=== PATIENT | male | born 1945 | race Caucasian/White ===

== ENCOUNTER 2016-06-03 13:44 | Inpatient (IN) | payer MEDICARE ==
[2016-06-03] MEDS ORDERED: SODIUM CHLORIDE 0.9% 10 ML FLUSH FLUSH PRN (14:31)
[2016-06-03 14:54] LABS: AUTOMATED BASOPHIL 0.4 % (0-2); AUTOMATED LYMPH 25.1 % (17-44); AUTOMATED MONOCYTE 10.2 % (3-10); AUTOMATED NEUTROPHIL 63.3 % (45-76); MPV 7.5 fL (7.4-10.4)
--- NOTE | 2016-06-03 14:58 | DIRPT ---
CLINICAL DATA: Chest pain EXAM: PORTABLE CHEST 1 VIEW COMPARISON: 06/12/2010 FINDINGS: The heart size and mediastinal contours are within normal limits. Both lungs are clear. The visualized skeletal structures are unremarkable. IMPRESSION: No active disease. Electronically Signed By: Giles Thompson M.D. On: 06/03/2016 14:55
[2016-06-03 15:00] LABS: BLOOD UREA NITROGEN 18 MG/DL (9-20); CALCIUM 10.3 MG/DL (8.4-10.2); CALCULATED OSMOLALITY 271 MOs/Kg (270-290); CHLORIDE 99 mEq/L (98-107); GLUCOSE 98 MG/DL (70-99); SODIUM LEVEL 140 mEq/L (137-146); TOTAL PROTEIN 7.8 G/DL (6.3-8.2)
--- NOTE | 2016-06-03 15:06 | EDPRACDOC ---
- General Information Information Source: Patient, Family - History of Present Illness Onset: this am 0500 Exact Onset of Symptoms: Unknown HPI: PT PRESENTS TODAY WITH WHO STATES THAT PT HAS BEEN CONFUSED AT HOME. STATES THAT SHE HEARD PT FALL LAST NIGHT AND THIS MORNING PT WAS WALKING AROUND THE HOUSE "URINATING ON EVERYTHING". PT THEN DEMANDED PANTS AND THREATENED HIS . PT HAS NO CURRENT COMPLAINTS. 3 DAYS AGO HAD LEFT LATERAL NECK PAIN, BUT NONE TODAY. PT DENIES DIZZINESS, FINNEY, CP, SHOB, ABD PAIN, N/V/D. NO APPARENT DISTRESS. PT PLEASANT AT THIS TIME. Symptoms began: At Night Duration: Since Onset Symptoms Currently: Reports: Still Present Altered Quality: Reports: Change in Behavior, Confusion Altered Severity: Reports: Moderate Recent Symptoms of: Reports: None Relevant History: Reports: CVA <Janice Bowers - Last Filed: 06/03/16 17:25> <Helena Chow - Last Filed: 06/03/16 18:11> - General Information Chief Complaint: Altered Mental Status Stated Complaint: INCREASING CONFUSION. HX TIAS Time Seen by Provider: 06/03/16 14:17 Home Medications: Home Medications CYANOCOBALAMIN (Vitamin B-12) [Vitamin B-12 (cyanocobalamin)] 1,000 mcg IM .MONTHLY 09/25/13 Omeprazole 20 mg PO DAILY 09/25/13 Escitalopram Oxalate [Lexapro] 20 mg PO DAILY 09/26/13 Pravastatin [Pravachol] 20 mg PO DAILY 09/26/13 Tizanidine HCl [Zanaflex] 4 mg PO .Q8-12H PRN 06/03/16 Allergies/Adverse Reactions: Allergies Allergy/AdvReac Type Severity Reaction Status Date / Time No Known Allergies Allergy Verified 06/03/16 14:58 ED Past Medical History - History Reviewed Yes Nurses notes reviewed and agree except as marked - Patient Medical History Neurological History: Reports: Cerebrovascular Accident (TIA) Cardiac History: Reports: Hypercholesterolemia Psychological History: Reports: Depression Systemic History: Reports: Cancer (stomach) - Family Medical History Reports: Cancer (FATHER), Cardiac Disorders (FATHER) - Social Medical History Smoking Status: Former smoker <Janice Bowers - Last Filed: 06/03/16 17:25> EDM Review of Systems - Review of Systems ROS Negative Except as Marked: Yes All systems reviewed and were negative except as marked Constitutional: No Symptoms Reported Respiratory: No Symptoms Reported Cardiovascular: No Symptoms Reported Gastrointestinal: No Symptoms Reported Neurological: Memory Changes, Changes in Orientation Musculoskeletal: No Symptoms Reported Integumentary: No Symptoms Reported <Janice Bowers - Last Filed: 06/03/16 17:25> - Physical Exam Constitutional: Alert (Awake), No apparent distress Oriented to: Time, Person, Place Last recorded Vital Signs: Last Vital Signs Temp 97.6 F 06/03/16 13:58 Pulse 60 06/03/16 14:10 Resp 16 06/03/16 14:10 BP 155/71 06/03/16 14:10 Pulse Ox 95 06/03/16 14:10 Oxygen Pulse Oxygen Saturation 95 O2 Device Room Air Oxygen Flow Rate Fraction of Inspired Oxygen ( FIO2) - HEENT Head: Normal Eye Exam: Normal (PERRL; EOMI; RED REFLEX NOTED; RIGHT EYE IS PROSTHETIC) Oropharynx: Normal Tympanic Membrane: Normal ENT EAC: Normal Nose: No Symptoms Reported Neck: Normal, Denies Pain, Midline - Respiratory/Cardiovascular Respiratory: Normal - CTA Cardiovascular: Normal - GI Palpation: Normal Tenderness: Non tender - Musculoskeletal Back: Normal Extremities: Normal - Integumentary Skin: Normal Lymphatics: Normal - Neurologic Cerebellar: Normal Mood Description: Normal Thought: Coherent Perception: Normal <Janice Bowers - Last Filed: 06/03/16 17:25> - Physical Exam Last recorded Vital Signs: Last Vital Signs Temp 97.6 F 06/03/16 13:58 Pulse 66 06/03/16 17:19 Resp 20 06/03/16 17:19 BP 175/79 06/03/16 17:19 Pulse Ox 96 06/03/16 17:19 Oxygen Pulse Oxygen Saturation 96 O2 Device Room Air Oxygen Flow Rate Fraction of Inspired Oxygen ( FIO2) <Helena Chow - Last Filed: 06/03/16 18:11> - Results 06/03/16 14:25 06/03/16 14:25 WBC 6.3 xk/uL (3.8-10.8) 06/03/16 14:25 RBC 3.73 xM/uL (4.70-6.10) L 06/03/16 14:25 Hgb 13.2 g/dL (14.0-18.0) L 06/03/16 14:25 Hct 38.9 % (42-52) L 06/03/16 14:25 MCV 104 fL (80-94) H 06/03/16 14:25 MCH 35.4 pg (27-32) H 06/03/16 14:25 MCHC 33.9 g/dl (33-36) 06/03/16 14:25 RDW 14.4 % (11.5-14.5) 06/03/16 14:25 Plt Count 169 xk/uL (130-400) 06/03/16 14:25 MPV 7.5 fL (7.4-10.4) 06/03/16 14:25 Neut % (Auto) 63.3 % (45-76) 06/03/16 14:25 Lymph % (Auto) 25.1 % (17-44) 06/03/16 14:25 [place] % (Auto) 10.2 % (3-10) H 06/03/16 14:25 Eos % (Auto) 1.0 % (0-5) 06/03/16 14:25 Baso % (Auto) 0.4 % (0-2) 06/03/16 14:25 Absolute Neuts (auto) 3.97 xk/uL (1.7-8.2) 06/03/16 14:25 Absolute Lymphs (auto) 1.58 xk/uL (0.65-4.75) 06/03/16 14:25 Lab Results 06/03/16 14:25 WBC 6.3 RBC 3.73 L Hgb 13.2 L Hct 38.9 L MCV 104 H MCH 35.4 H MCHC 33.9 RDW 14.4 Plt Count 169 MPV 7.5 Neut % (Auto) 63.3 Lymph % (Auto) 25.1 [place] % (Auto) 10.2 H Eos % (Auto) 1.0 Baso % (Auto) 0.4 Absolute Neuts (auto) 3.97 Absolute Lymphs (auto) 1.58 - EKG EKG #1 EKG Time: 14:38 -: Yes EKG interpreted by me Rate: bpm: 62 [place]: Normal Rhythm: NSR Block: None Hypertrophy: None ST: Normal <Janice Bowers - Last Filed: 06/03/16 17:25> - Results 06/03/16 14:25 06/03/16 14:25 WBC 6.3 xk/uL (3.8-10.8) 06/03/16 14:25 RBC 3.73 xM/uL (4.70-6.10) L 06/03/16 14:25 Hgb 13.2 g/dL (14.0-18.0) L 06/03/16 14:25 Hct 38.9 % (42-52) L 06/03/16 14:25 MCV 104 fL (80-94) H 06/03/16 14:25 MCH 35.4 pg (27-32) H 06/03/16 14:25 MCHC 33.9 g/dl (33-36) 06/03/16 14:25 RDW 14.4 % (11.5-14.5) 06/03/16 14:25 Plt Count 169 xk/uL (130-400) 06/03/16 14:25 MPV 7.5 fL (7.4-10.4) 06/03/16 14:25 Neut % (Auto) 63.3 % (45-76) 06/03/16 14:25 Lymph % (Auto) 25.1 % (17-44) 06/03/16 14:25 [place] % (Auto) 10.2 % (3-10) H 06/03/16 14:25 Eos % (Auto) 1.0 % (0-5) 06/03/16 14:25 Baso % (Auto) 0.4 % (0-2) 06/03/16 14:25 Absolute Neuts (auto) 3.97 xk/uL (1.7-8.2) 06/03/16 14:25 Absolute Lymphs (auto) 1.58 xk/uL (0.65-4.75) 06/03/16 14:25 PT 10.2 SEC (9.2-11.2) 06/03/16 14:25 INR 1.0 06/03/16 14:25 APTT 24.0 SEC (22-35) 06/03/16 14:25 Sodium 140 mEq/L (137-146) 06/03/16 14:25 Potassium 4.5 mEq/L (3.5-5.1) 06/03/16 14:25 Chloride 99 mEq/L (98-107) 06/03/16 14:25 Carbon Dioxide 30 mMOL/L (22-33) 06/03/16 14:25 Anion Gap 16 mEq/L (8-16) 06/03/16 14:25 BUN 18 MG/DL (9-20) 06/03/16 14:25 Creatinine 1.10 MG/DL (0.66-1.25) 06/03/16 14:25 Estimated GFR (MDRD) > 60 mL/min (>=60) 06/03/16 14:25 Glucose 98 MG/DL (70-99) 06/03/16 14:25 Calculated Osmolality 271 MOs/Kg (270-290) 06/03/16 14:25 Calcium 10.3 MG/DL (8.4-10.2) H 06/03/16 14:25 Total Bilirubin 0.9 MG/DL (0.2-1.3) 06/03/16 14:25 AST 28 IU/L (17-59) 06/03/16 14:25 ALT 29 IU/L (21-72) 06/03/16 14:25 Alkaline Phosphatase 85 IU/L (50-160) 06/03/16 14:25 Troponin I < 0.01 ng/mL (<.04) 06/03/16 14:25 Total Protein 7.8 G/DL (6.3-8.2) 06/03/16 14:25 Albumin 4.3 G/DL (3.5-5.0) 06/03/16 14:25 Urine Color Yellow 06/03/16 14:25 Urine Clarity Cldy 06/03/16 14:25 Urine pH 7.0 (5.0-8.0) 06/03/16 14:25 Ur Specific [place] 1.010 (1.003-1.035) 06/03/16 14:25 Urine Protein Neg (NEG/TRACE) 06/03/16 14:25 Urine Glucose (UA) Neg (NEGATIVE) 06/03/16 14:25 Urine Ketones Neg (NEGATIVE) 06/03/16 14:25 Urine Occult Blood Neg (NEG/TRACE) 06/03/16 14:25 Urine Nitrite Neg (NEGATIVE) 06/03/16 14:25 Urine Bilirubin Neg (NEGATIVE) 06/03/16 14:25 Urine Urobilinogen <2.0 MG/DL (0-1) 06/03/16 14:25 Ur Leukocyte Esterase Neg (NEGATIVE) 06/03/16 14:25 Urine RBC 0-2 (0-2) 06/03/16 14:25 Urine WBC 2-5 (0-2) H 06/03/16 14:25 Amorphous Sediment 2+ 06/03/16 14:25 Urine Bacteria 2+ (NEG/FEW) H 06/03/16 14:25 Urine Mucus Occ (NEG/OCC) 06/03/16 14:25 Lab Results 06/03/16 06/03/16 06/03/16 14:25 14:25 14:25 WBC 6.3 RBC 3.73 L Hgb 13.2 L Hct 38.9 L MCV 104 H MCH 35.4 H MCHC 33.9 RDW 14.4 Plt Count 169 MPV 7.5 Neut % (Auto) 63.3 Lymph % (Auto) 25.1 [place] % (Auto) 10.2 H Eos % (Auto) 1.0 Baso % (Auto) 0.4 Absolute Neuts (auto) 3.97 Absolute Lymphs (auto) 1.58 PT 10.2 INR 1.0 APTT 24.0 Sodium Potassium Chloride Carbon Dioxide Anion Gap BUN Creatinine Estimated GFR (MDRD) Glucose Calculated Osmolality Calcium Total Bilirubin AST ALT Alkaline Phosphatase Troponin I Total Protein Albumin Urine Color Yellow Urine Clarity Cldy Urine pH 7.0 Ur Specific [place] 1.010 Urine Protein Neg Urine Glucose (UA) Neg Urine Ketones Neg Urine Occult Blood Neg Urine Nitrite Neg Urine Bilirubin Neg Urine Urobilinogen <2.0 Ur Leukocyte Esterase Neg Urine RBC 0-2 Urine WBC 2-5 H Amorphous Sediment 2+ Urine Bacteria 2+ H Urine Mucus Occ 06/03/16 14:25 WBC RBC Hgb Hct MCV MCH MCHC RDW Plt Count MPV Neut % (Auto) Lymph % (Auto) [place] % (Auto) Eos % (Auto) Baso % (Auto) Absolute Neuts (auto) Absolute Lymphs (auto) PT INR APTT Sodium 140 Potassium 4.5 Chloride 99 Carbon Dioxide 30 Anion Gap 16 BUN 18 Creatinine 1.10 Estimated GFR (MDRD) > 60 Glucose 98 Calculated Osmolality 271 Calcium 10.3 H Total Bilirubin 0.9 AST 28 ALT 29 Alkaline Phosphatase 85 Troponin I < 0.01 Total Protein 7.8 Albumin 4.3 Urine Color Urine Clarity Urine pH Ur Specific [place] Urine Protein Urine Glucose (UA) Urine Ketones Urine Occult Blood Urine Nitrite Urine Bilirubin Urine Urobilinogen Ur Leukocyte Esterase Urine RBC Urine WBC Amorphous Sediment Urine Bacteria Urine Mucus <Helena Chow - Last Filed: 06/03/16 18:11> - Departure Disposition: Admit IP To This Hospital Decision to Admit Time: 17:25 Decision to admit date: 06/03/16 Decision to admit: from ED <Janice Bowers - Last Filed: 06/03/16 17:25> - Departure Education/Counseling Given To: Patient, Family Member Education/Counseling Given Regarding: Diagnosis, Treatment Decision to Admit Time: 18:11 Decision to admit date: 06/03/16 Decision to admit: from ED - Physician Consulted Hospitalist Provider Called: Kalia Dugan <Helena Chow - Last Filed: 06/03/16 18:11> - Departure Condition: Stable Final Diagnosis: CVA (cerebral vascular accident) Qualifiers: CVA mechanism: unspecified Qualified Code(s): I63.9 - Cerebral infarction, unspecified Referrals: Dylon Arriola MD [Primary Care Provider] - One Week
[2016-06-03 15:07] LABS: LEUKOCYTES/URINE NEG (NEGATIVE); NITRITE/URINE NEG (NEGATIVE); URINE OCCULT BLOOD NEG (NEG/TRACE)
[2016-06-03 15:08] LABS: AMORPHOUS 2+; RBC/URINE 0-2 (0-2)
--- NOTE | 2016-06-03 15:55 | DIRPT ---
CLINICAL DATA: Altered mental status and confusion following fall 1 day prior. History of lymphoma EXAM: CT HEAD WITHOUT CONTRAST TECHNIQUE: Contiguous axial images were obtained from the base of the skull through the vertex without intravenous contrast. COMPARISON: September 17, 2014 FINDINGS: Mild diffuse atrophy is stable. There is no intracranial mass, hemorrhage, extra-axial fluid collection, or midline shift. There is evidence of a prior infarct in the posterior left temporal lobe region, stable. There is evidence of a prior infarct in the inferior right frontal lobe, stable. There is evidence of a prior infarct in the medial left occipital lobe, stable. There is evidence of an infarct in the mid right occipital lobe which was not present on the most recent prior study. It must be regarded as age uncertain. There is patchy small vessel disease in the centra semiovale bilaterally, more on the left than on the right, stable. No acute appearing infarct is evident. The bony calvarium appears intact. The mastoid air cells are clear. There is calcification of the right globe, stable. The left orbit appears unremarkable. IMPRESSION: Atrophy with small vessel disease in several prior infarcts. An infarct in the medial to mid right occipital lobe was not present on most recent prior study. It has somewhat ill-defined borders and must be regarded as age uncertain. A recent infarct in this area cannot be entirely excluded. Given this circumstance, MR correlation may well be reasonable. No hemorrhage or mass effect. No extra-axial fluid collection. Calcification of the right globe is a stable finding. Electronically Signed By: Ki Richard III, M.D. On: 06/03/2016 15:52
--- NOTE | 2016-06-03 17:16 | DIRPT ---
CLINICAL DATA: Altered mental status for 1 day. Confusion. History of colon cancer. EXAM: MRI HEAD WITHOUT AND WITH CONTRAST TECHNIQUE: Multiplanar, multiecho pulse sequences of the brain and surrounding structures were obtained without and with intravenous contrast. CONTRAST: MultiHance 15 mL. COMPARISON: MR brain 08/06/2010. CT head 06/03/2016. FINDINGS: Small area of restricted diffusion in the RIGHT cerebellum inferiorly, RIGHT PICA distribution, nearly 1 cm in diameter, representing acute infarction. No other areas of restricted diffusion. No acute hemorrhage, hydrocephalus, or extra-axial fluid. Widespread areas of chronic infarction throughout both cerebral hemispheres. These involve most notably the RIGHT greater than LEFT occipital lobes, RIGHT frontal lobe, LEFT temporal lobe, and LEFT posterior frontal lobe. Chronic superior and inferior LEFT cerebellar infarcts are also seen. Flow voids are maintained. Prominence of the extra-axial CSF spaces over the frontal lobes represent generalized atrophy, advanced for age. There is extensive chronic microvascular ischemic change superimposed. Post infusion, there is enhancement of a RIGHT frontal cortex, up to 5 mm diameter, which could represent subacute infarct or metastasis. Linear area of enhancement in the LEFT frontal cortex extending to the subcortical white matter, up to 17 mm long axis but only 3 mm thick, almost certainly represents enhancement of a subacute infarct. No enhancement in the acute cerebellar infarct. Prosthetic globe on the RIGHT. No osseous lesions. IMPRESSION: Acute RIGHT inferior cerebellar infarct, RIGHT PICA distribution, without obvious disease in the adjacent RIGHT vertebral artery. Widespread areas of chronic infarction throughout both cerebral hemispheres, as well as LEFT cerebellum. Generalized atrophy with chronic microvascular ischemic changes superimposed. Somewhat unusual enhancement pattern involving LEFT frontal cortex and subcortical white matter as well as a smaller cortical area of enhancement in the RIGHT frontal lobe. These are favored to represent manifestations of subacute infarction, although with a history of colon cancer, an atypical manifestation of metastatic disease is not completely excluded. Recommend short-term follow-up. Electronically Signed By: Alfred Sims M.D. On: 06/03/2016 17:14
[2016-06-03] MEDS ORDERED: ASPIRIN 325 MG TAB PO ONE (17:19)
[2016-06-03] MEDS ORDERED: MAGNESIUM HYDROXIDE 30 ML BOTTLE PO PRN (18:39)
[2016-06-03] MEDS ORDERED: ACETAMINOPHEN 325 MG/TAB TABLET PO PRN (18:39)
[2016-06-03] MEDS ORDERED: ACETAMINOPHEN 650 MG SUPP PR PRN (18:39)
[2016-06-03] MEDS ORDERED: PROMETHAZINE 25 MG/ML VIAL IV PRN (18:39)
[2016-06-03] MEDS ORDERED: Docusate Sodium 100 MG CAP PO PRN (18:39)
[2016-06-03] MEDS ORDERED: ONDANSETRON HCL 4 MG/2 ML VIAL IV PRN (18:39)
--- NOTE | 2016-06-03 18:39 | HISTPHYS ---
- Chief Complaint confusion, weakness, falls - History of Present Illness Mr. Samayoa is a 71-year-old white male with history of TIAs in the past who presents the emergency room with confusion, weakness and ambulatory dysfunction. His states confuse and started yesterday and has worsened over the last 24 hours. This morning he has fallen a couple times. He has been urinating in multiple areas in the house and is complained of generalized weakness. MRI has confirmed cerebellar stroke with concerning frontal ischemic type changes. He is unable to provide any history himself and is clearly confused at this point in time. He does not have focal weakness but he has difficulty following commands and has problems with discoordination and past- pointing. He will be admitted to the hospital for further evaluation and management of acute stroke. - Medical History Cardiac History: Reports: Hypercholesterolemia Respiratory History: Reports: No Significant History GI/ History: Reports: No Significant History Musculoskeletal History: Reports: Arthritis Systemic History: Reports: Cancer (stomach) Neurological History: Reports: Cerebrovascular Accident (TIA) Psychological History: Reports: Depression - Surgical History Reports: No Significant History - Medictions/Allergies Allergies No Known Allergies Allergy (Verified 06/03/16 14:58) Current Medication List: Reviewed Home Medications CYANOCOBALAMIN (Vitamin B-12) [Vitamin B-12 (cyanocobalamin)] 1,000 mcg IM .MONTHLY 09/25/13 Omeprazole 20 mg PO DAILY 09/25/13 Escitalopram Oxalate [Lexapro] 20 mg PO DAILY 09/26/13 Pravastatin [Pravachol] 20 mg PO DAILY 09/26/13 Tizanidine HCl [Zanaflex] 4 mg PO .Q8-12H PRN 06/03/16 - Family History Reports: Cancer (FATHER), Cardiac Disorders (FATHER) - Social History Lives: with Spouse Smoking Status: Former smoker Social History: Denies: Alcohol Use - Review of Systems Yes Review of systems cannot be obtained due to the patient's medical condition (altered mental status, confusion) Constitutional: No Symptoms Reported - Physical Exam Constitutional: No apparent distress, Alert (Awake), Well nourished, Well appearing Oriented to: Person, Not Oriented Exam: Last Vital Signs Temp 97.6 F 06/03/16 13:58 Pulse 66 06/03/16 17:19 Resp 20 06/03/16 17:19 BP 175/79 06/03/16 17:19 Pulse Ox 96 06/03/16 17:19 Intake & Output 06/03/16 06/03/16 06/03/16 07:59 15:59 23:59 Patient's weight 74.253 kg - HEENT Head: Normal Eye: Other (Artificial right eye) Oropharynx: Normal Tympanic Membrane: Normal ENT EAC: Normal Nose: No Symptoms Reported - Respiratory/Cardiovascular Respiratory: Normal - CTA Cardiovascular: Normal. negative: Irregular - GI Auscultation: Normal Palpation: Normal Tenderness: Non tender - Musculoskeletal Back: Normal. negative: Abrasion Extremities: Normal. negative: Calf Tenderness - Integumentary Skin: Normal, Warm, Dry Lymphatics: Normal - Neurologic Memory Impaired: Short-term Motor Function: Other (Strength is 5 x 5 bilaterally) Cranial Nerve: Other (Artificial right eye but otherwise intact) Cerebellar: Past-Pointing. negative: Tremor Mood Description: Normal Thought: Coherent Perception: Normal - Focused CV Perfusion Exam Vital Signs: Last Vital Signs Temp 97.6 F 06/03/16 13:58 Pulse 66 06/03/16 17:19 Resp 20 06/03/16 17:19 BP 175/79 06/03/16 17:19 Pulse Ox 96 06/03/16 17:19 - Lab Results Laboratory Results - last 24 hr 06/03/16 06/03/16 06/03/16 14:25 14:25 14:25 WBC 6.3 RBC 3.73 L Hgb 13.2 L Hct 38.9 L MCV 104 H MCH 35.4 H MCHC 33.9 RDW 14.4 Plt Count 169 MPV 7.5 Neut % (Auto) 63.3 Lymph % (Auto) 25.1 [place] % (Auto) 10.2 H Eos % (Auto) 1.0 Baso % (Auto) 0.4 Absolute Neuts (auto) 3.97 Absolute Lymphs (auto) 1.58 PT 10.2 INR 1.0 APTT 24.0 Sodium 140 Potassium 4.5 Chloride 99 Carbon Dioxide 30 Anion Gap 16 BUN 18 Creatinine 1.10 Estimated GFR (MDRD) > 60 Glucose 98 Calculated Osmolality 271 Calcium 10.3 H Total Bilirubin 0.9 AST 28 ALT 29 Alkaline Phosphatase 85 Troponin I < 0.01 Total Protein 7.8 Albumin 4.3 Urine Color Urine Clarity Urine pH Ur Specific [place] Urine Protein Urine Glucose (UA) Urine Ketones Urine Occult Blood Urine Nitrite Urine Bilirubin Urine Urobilinogen Ur Leukocyte Esterase Urine RBC Urine WBC Amorphous Sediment Urine Bacteria Urine Mucus 06/03/16 14:25 WBC RBC Hgb Hct MCV MCH MCHC RDW Plt Count MPV Neut % (Auto) Lymph % (Auto) [place] % (Auto) Eos % (Auto) Baso % (Auto) Absolute Neuts (auto) Absolute Lymphs (auto) PT INR APTT Sodium Potassium Chloride Carbon Dioxide Anion Gap BUN Creatinine Estimated GFR (MDRD) Glucose Calculated Osmolality Calcium Total Bilirubin AST ALT Alkaline Phosphatase Troponin I Total Protein Albumin Urine Color Yellow Urine Clarity Cldy Urine pH 7.0 Ur Specific [place] 1.010 Urine Protein Neg Urine Glucose (UA) Neg Urine Ketones Neg Urine Occult Blood Neg Urine Nitrite Neg Urine Bilirubin Neg Urine Urobilinogen <2.0 Ur Leukocyte Esterase Neg Urine RBC 0-2 Urine WBC 2-5 H Amorphous Sediment 2+ Urine Bacteria 2+ H Urine Mucus Occ - Assessment (1) CVA (cerebral vascular accident) I63.9 - CEREBRAL INFARCTION, UNSPECIFIED Acute Present on Admission: Yes Qualifiers: CVA mechanism: unspecified Qualified Code(s): I63.9 - Cerebral infarction, unspecified Cerebellar stroke confirmed on MRI. With old strokes and frontal ischemic changes as well. Not take an aspirin so will start that. Continue Pravachol. Hold on ERIKA-inhibitor will see how his blood pressures change. Currently blood pressures in the 160's systolic. Will have speech therapy, physical therapy, occupational therapy evaluate. Will check carotid Dopplers and 2D echo. (2) Altered mental status R41.82 - ALTERED MENTAL STATUS, UNSPECIFIED Acute Present on Admission: Yes Qualifiers: Altered mental status type: unspecified Qualified Code(s): R41.82 - Altered mental status, unspecified Likely related to acute stroke. Some frontal ischemic appearing changes as well. Treat stroke and monitor. (3) Hypertension I10 - ESSENTIAL (PRIMARY) HYPERTENSION Acute Present on Admission: Yes Qualifiers: Hypertension type: essential hypertension Qualified Code(s): I10 - Essential (primary) hypertension Given acute stroke will allow permissive hypertension. Denies any previous history of hypertension. Hold on medicines currently and will see how his blood pressure stabilize over the next 24-48 hours (4) Hyperlipidemia E78.5 - HYPERLIPIDEMIA, UNSPECIFIED Acute Present on Admission: Yes Qualifiers: Hyperlipidemia type: pure hypercholesterolemia Qualified Code(s): E78.00 - Pure hypercholesterolemia, unspecified; E78.0 - Pure hypercholesterolemia Continue Pravachol for now. (5) Depression F32.9 - MAJOR DEPRESSIVE DISORDER, SINGLE EPISODE, UNSPECIFIED Acute Present on Admission: Yes Qualifiers: Depression Type: unspecified Qualified Code(s): F32.9 - Major depressive disorder, single episode, unspecified Continue home medications Case Care Discussed with: Patient, Family Total Time: 1 hour Critical Care: Yes
[2016-06-03] MEDS: Aspirin (Orange Enteric Coated) 325 mg tab PO SCH (19:33)
[2016-06-03 19:49] VITALS: BMI 20.7
[2016-06-03] MEDS: ENOXAPARIN 40 MG/0.4 ML PFS SQ SCH (19:52)
[2016-06-03] MEDS: NICOTINE 21 MG PATCH TOP SCH (19:52)
[2016-06-03] MEDS ORDERED: Vaccine Screening Complete SCH (22:00)
--- NOTE | 2016-06-04 07:57 | DIRPT ---
CLINICAL DATA: Altered mental status for 1 day. Confusion. EXAM: BILATERAL CAROTID DUPLEX ULTRASOUND TECHNIQUE: Schulz scale imaging, color Doppler and duplex ultrasound were performed of bilateral carotid and vertebral arteries in the neck. COMPARISON: 07/25/2013 FINDINGS: Criteria: Quantification of carotid stenosis is based on velocity parameters that correlate the residual internal carotid diameter with NASCET-based stenosis levels, using the diameter of the distal internal carotid lumen as the denominator for stenosis measurement. The following velocity measurements were obtained: RIGHT ICA: 59 cm/sec CCA: 66 cm/sec SYSTOLIC ICA/CCA RATIO: 0.9 DIASTOLIC ICA/CCA RATIO: 1.4 ECA: 37 cm/sec LEFT ICA: 68 cm/sec CCA: 65 cm/sec SYSTOLIC ICA/CCA RATIO: 1.0 DIASTOLIC ICA/CCA RATIO: 1.2 ECA: 75 cm/sec RIGHT CAROTID ARTERY: Small amount of plaque at the right carotid bulb. Right external carotid artery is patent without significant narrowing. Small amount of plaque in the proximal internal carotid artery without hemodynamically significant stenosis. RIGHT VERTEBRAL ARTERY: Antegrade flow and normal waveform in the right vertebral artery. LEFT CAROTID ARTERY: Small amount of plaque at the left carotid bulb without significant stenosis. Small amount of plaque near the origin of the external carotid artery without hemodynamically significant stenosis. Intimal thickening or minimal plaque in the proximal internal carotid artery without significant stenosis. Normal waveforms and velocities in the left internal carotid artery. LEFT VERTEBRAL ARTERY: Antegrade flow and normal waveform in the left vertebral artery. IMPRESSION: Mild atherosclerotic disease in the carotid arteries. Estimated degree of stenosis in the internal carotid arteries is less than 50% bilaterally. Patent vertebral arteries. Electronically Signed By: Michael Chisholm M.D. On: 06/04/2016 07:54
[2016-06-04] MEDS ORDERED: FLU VACCINE (Afluria) 0.5 ML DOSE IM ONE (08:00)
[2016-06-04] MEDS ORDERED: PNEUMOCOCCAL 0.5 ML VIAL IM ONE (08:00)
--- NOTE | 2016-06-04 10:50 | CAPUECHO ---
INDICATION: ISCHEMIC STROKE--EVAL FORAMEN OVALE HEIGHT: 182.9 cm (6 ft 0.0 in) WEIGHT: 73.5 kg (162.0 lbs) BP: 130/73 BSA: 1.165476 m MEASUREMENTS 2D RVIDd: 3.7 cm LVOT Diam: 2.1 cm EF Biplane: 57.64 % LAESV MOD A4C: 42.5 ml LAESV MOD A2C: 30.4 ml LAESV Index (A-L): 21.03 ml/m M-MODE IVSd: 0.9 cm LVIDd: 5.6 cm LVPWd: 1.0 cm LVIDs: 3.8 cm EF(Teich): 59 % Ao Diam: 3.2 cm LA Diam: 3.3 cm DOPPLER MV E Tha: 0.56 m/s MV A Tha: 0.74 m/s MV PHT: 47.03 ms MVA By PHT: 4.68 cm LVOT Vmax: 0.85 m/s AV Vmax: 1.33 m/s MERLY Vmax, Pt: 2.15 cm TR Vmax: 1.96 m/s TR maxP mmHg RVSP: 28.57 mmHg FINDINGS ------- Procedure:2D images, m-mode, color and spectral Doppler were obtained and reviewed. ECG rhythm:Sinus rhythm. Study quality:This was a technically adequate study. Previous echo exam 06/2013. Left Ventricle:The left ventricular cavity size and wall thickness normal, normal LVEF between 55 - 60 %, no segmental abnormality. The diastolic filling pattern indicates impaired relaxation. Right Ventricle:The right ventricle is normal in size and function. Left Atrium:The left atrium is normal in size. Right Atrium:The right atrium is normal in size and function. Septum grossly normal, intact by Dop pler. Aortic Valve:The aortic valve is trileaflet with mild aortic valve sclerosis, good mobility, no r egurgitation. Mitral Valve:Normal appearing mitral valve. There is trace to mild mitral regurgitation. Tricuspid Valve:The tricuspid valve appears structurally normal. Trace tricuspid regurgitation pre sent. The right ventricular systolic pressure, as measured by Doppler, is 29mmHg. Pulmonic Valve:The pulmonic valve is normal. There is no pulmonic regurgitation present. Aorta:The aortic root, ascending aorta and aortic arch appear normal. IVC:No clear views of IVC nor subcostal lax and sax. Pericardium:There is no pericardial effusion. CONCLUSIONS 1. Normal left ventricular size and systolic function, no segmental abnormality 2. mild aortic v alve sclerosis 3. normal right heart size/function, trace TR, normal pulm artery pressure suggest ed 4. interatrial septum intact by color Doppler No intracardiac source for emboli id entified. Electronically Signed By: Mian Wayne MD-- Electronically Signed On: 10:45:05
[2016-06-04] MEDS: Aspirin (Orange Enteric Coated) 325 mg tab PO SCH (11:12)
[2016-06-04] MEDS ORDERED: VARIBAR NECTAR 40% BARIUM 240 ML ONE (14:32)
[2016-06-04] MEDS ORDERED: VARIBAR THIN 40% BARIUM 250 ML ONE (14:32)
--- NOTE | 2016-06-04 15:31 | GENMEDPROG ---
Chief Complaint: walked down [place] today mild dysarthria and dysphagia Notes Reviewed: Yes Events from last night noted and discussed with Clinical Staff Current Medication List: Reviewed DVT Prophylaxis: Yes - Physical Examination Vital Signs and I&O: Last Vital Signs Temp 97.6 F 06/04/16 08:23 Pulse 73 06/04/16 09:00 Resp 18 06/04/16 08:23 BP 136/69 06/04/16 08:23 Pulse Ox 96 06/04/16 08:23 Oxygen Pulse Oxygen Saturation 96 O2 Device Room Air Oxygen Flow Rate Fraction of Inspired Oxygen ( FIO2) Intake & Output 06/01/16 06/02/16 06/03/16 06/04/16 23:59 23:59 23:59 23:59 Intake Total 205 Output Total 250 50 Balance -250 155 Patient's weight 69.57 kg 69.57 kg General: Alert, Cooperative, No acute distress, Well appearing, Well nourished HEENT: Normal (Normocephalic, atraumatic;EOMI.Sclera white, Nares patent, without discharge or bleeding. No oropharyngeal lesions or erythema. Mucous membranes are dry.) Neck: Non-tender, Full range of motion, Normal Trachea alignment, Normal inspection (No cervical lymphadenopathy. No supraclavicular lymphadenopathy.), No Masses palpable, Supple Lymphatics: Normal Respiratory: Normal - CTA Cardiovascular: Regular rate and rhythm (No bradycardia or tachycardia), Normal S1, No Gallops,Rubs/Murmurs, Normal S2, Good Pedal Pulses (DP pulses 2+ bilaterally) GI: Normal bowel sounds (normal active sounds), Soft (non-distended), Non tender , No hepatospenomegaly, No masses Extremities/Musculoskeletal: Normal pulses (DP pulses 2+ bilaterally) Skin: Warm,Dry and Intact, No rashes, No significant lesion Neurological: Dysmetria (L ftn dysmetria). negative: Normal speech Psych/Mental Status: Appropriate, Normal Affect Lab/DI/Studies Reviewed: 06/03/16 14:25 06/03/16 14:25 Laboratory Results - last 24 hr 06/03/16 06/03/16 16:03 21:10 Troponin I < 0.01 < 0.01 - Assessment (1) CVA (cerebral vascular accident) Acute I63.9 - CEREBRAL INFARCTION, UNSPECIFIED Qualifiers: CVA mechanism: unspecified Qualified Code(s): I63.9 - Cerebral infarction, unspecified Comment/Plan: Cerebellar stroke confirmed on MRI. With old strokes and frontal ischemic changes as well. Not take an aspirin so will start that. Continue Pravachol. Hold on ERIKA-inhibitor will see how his blood pressures change. Currently blood pressures in the 160's systolic. Will have speech therapy, physical therapy, occupational therapy evaluate. Carotid Doppler shows mild atherosclerosis and 2D echo shows diastolic dysfunction with ejection fraction 55-60% (2) Depression Acute F32.9 - MAJOR DEPRESSIVE DISORDER, SINGLE EPISODE, UNSPECIFIED Qualifiers: Depression Type: unspecified Qualified Code(s): F32.9 - Major depressive disorder, single episode, unspecified Comment/Plan: Continue home medications (3) Hyperlipidemia Acute E78.5 - HYPERLIPIDEMIA, UNSPECIFIED Qualifiers: Hyperlipidemia type: pure hypercholesterolemia Qualified Code(s): E78.00 - Pure hypercholesterolemia, unspecified; E78.0 - Pure hypercholesterolemia Comment/Plan: Continue Pravachol for now. (4) Hypertension Acute I10 - ESSENTIAL (PRIMARY) HYPERTENSION Qualifiers: Hypertension type: essential hypertension Qualified Code(s): I10 - Essential (primary) hypertension Comment/Plan: Given acute stroke will allow permissive hypertension. Denies any previous history of hypertension. Hold on medicines currently and will see how his blood pressure stabilize over the next 24-48 hours Additional Notes: Due to the presence of and / or the risk of deterioration, my attendance to this patient required critical care time, including assessment/reassessment, documentation, ordering and interpreting ancillary studies, discussion with staff and consultants,patient and family, and excludes time spent on separately billable procedures. This individual is critically ill and in danger of dying. Case Care Discussed with: Patient, Nursing Staff, Resource Management Education/Counseling Given To: Patient Education/Counseling Given Regarding: Diagnosis Total Time: 37 min Critical Care: Yes Code: 291
[2016-06-04] MEDS: ENOXAPARIN 40 MG/0.4 ML PFS SQ SCH (18:20)
[2016-06-04] MEDS: NICOTINE 21 MG PATCH TOP SCH (20:23)
[2016-06-05] MEDS: Aspirin (Orange Enteric Coated) 325 mg tab PO SCH (08:42)
[2016-06-05] MEDS: ENSURE PUDDING CHOCOLATE 5 OZ PO SCH (08:49)
--- NOTE | 2016-06-05 09:04 | GENMEDPROG ---
Notes Reviewed: Yes Events from last night noted and discussed with Clinical Staff Current Medication List: Reviewed Currently: Reports: Cough DVT Prophylaxis: Yes - Physical Examination Vital Signs and I&O: Last Vital Signs Temp 97.8 F 06/05/16 03:49 Pulse 82 06/05/16 06:00 Resp 18 06/05/16 03:49 BP 124/74 06/05/16 03:49 Pulse Ox 97 06/05/16 03:49 Oxygen Pulse Oxygen Saturation 97 O2 Device Room Air Oxygen Flow Rate Fraction of Inspired Oxygen ( FIO2) Intake & Output 06/02/16 06/03/16 06/04/16 06/05/16 23:59 23:59 23:59 23:59 Intake Total 925 Output Total 250 250 Balance -250 675 Patient's weight 69.57 kg 69.57 kg 69.49 kg General: Alert, Cooperative, No acute distress, Well appearing, Well nourished HEENT: Normal (Normocephalic, atraumatic;EOMI.Sclera white, Nares patent, without discharge or bleeding. No oropharyngeal lesions or erythema. Mucous membranes are dry.) Neck: Non-tender, Full range of motion, Normal Trachea alignment, Normal inspection (No cervical lymphadenopathy. No supraclavicular lymphadenopathy.), No Masses palpable, Supple Lymphatics: Normal Respiratory: Normal - CTA Cardiovascular: Regular rate and rhythm (No bradycardia or tachycardia), Normal S1, No Gallops,Rubs/Murmurs, Normal S2, Good Pedal Pulses (DP pulses 2+ bilaterally) GI: Normal bowel sounds (normal active sounds), Soft (non-distended), Non tender , No hepatospenomegaly, No masses Extremities/Musculoskeletal: Normal pulses (DP pulses 2+ bilaterally) Skin: Warm,Dry and Intact, No rashes, No significant lesion Neurological: Dysmetria (L ftn dysmetria). negative: Normal speech Psych/Mental Status: Appropriate, Normal Affect Lab/DI/Studies Reviewed: 06/03/16 14:25 06/03/16 14:25 - Assessment (1) CVA (cerebral vascular accident) Acute I63.9 - CEREBRAL INFARCTION, UNSPECIFIED Qualifiers: CVA mechanism: unspecified Qualified Code(s): I63.9 - Cerebral infarction, unspecified Comment/Plan: Cerebellar stroke confirmed on MRI. With old strokes and frontal ischemic changes as well. Not take an aspirin so will start that. Continue Pravachol. Hold on ERIKA-inhibitor will see how his blood pressures change. Currently blood pressures in the 160's systolic. Will have speech therapy, physical therapy, occupational therapy evaluate. Carotid Doppler shows mild atherosclerosis and 2D echo shows diastolic dysfunction with ejection fraction 55-60% (2) Agitation states as acute reaction to exceptional (gross) stress Acute R45.1 - RESTLESSNESS AND AGITATION Comment/Plan: Acute agitation last pm became agitated and threatening. Start seroquel. (3) Dysphagia Acute R13.10 - DYSPHAGIA, UNSPECIFIED Qualifiers: Dysphagia type: oropharyngeal phase Qualified Code(s): R13.12 - Dysphagia, oropharyngeal phase Comment/Plan: Thickener is ordered and instructions on feeding given to young spouse. (4) Hyperlipidemia Acute E78.5 - HYPERLIPIDEMIA, UNSPECIFIED Qualifiers: Hyperlipidemia type: pure hypercholesterolemia Qualified Code(s): E78.00 - Pure hypercholesterolemia, unspecified; E78.0 - Pure hypercholesterolemia Comment/Plan: Continue Pravachol for now. (5) Depression Acute F32.9 - MAJOR DEPRESSIVE DISORDER, SINGLE EPISODE, UNSPECIFIED Qualifiers: Depression Type: unspecified Qualified Code(s): F32.9 - Major depressive disorder, single episode, unspecified Comment/Plan: Continue home medications (6) Hypertension Acute I10 - ESSENTIAL (PRIMARY) HYPERTENSION Qualifiers: Hypertension type: essential hypertension Qualified Code(s): I10 - Essential (primary) hypertension Comment/Plan: Given acute stroke will allow permissive hypertension. Denies any previous history of hypertension. Hold on medicines currently and will see how his blood pressure stabilize over the next 24-48 hours (7) Diastolic CHF Chronic I50.30 - UNSPECIFIED DIASTOLIC (CONGESTIVE) HEART FAILURE Qualifiers: Congestive heart failure chronicity: chronic Qualified Code(s): I50.32 - Chronic diastolic (congestive) heart failure Comment/Plan: Echocardiogram showed evidence of diastolic dysfunction but ejection fraction is 55%. Acute CHF is not evident. Disposition Plan: d/c home tuesday Case Care Discussed with: Patient, Family, Nursing Staff, Resource Management Education/Counseling Given To: Patient, Family Member Education/Counseling Given Regarding: Diagnosis, Treatment Total Time: 39 min Critical Care: No Code: 55482 (12+)
[2016-06-05] MEDS ORDERED: QUETIAPINE FUMARATE 25 MG TAB PO PRN (09:05)
[2016-06-05] MEDS: QUETIAPINE FUMARATE 25 MG TAB PO SCH (10:08)
[2016-06-05] MEDS: Aluminum;Magnesium;Simethicone 30 ML UDC PO PRN (11:56)
[2016-06-05] MEDS: ENOXAPARIN 40 MG/0.4 ML PFS SQ SCH (18:08)
[2016-06-05] MEDS: NICOTINE 21 MG PATCH TOP SCH (20:06)
[2016-06-06] MEDS: Aluminum;Magnesium;Simethicone 30 ML UDC PO PRN (02:45)
[2016-06-06 08:30] VITALS: BP 137/80; TEMP 97.4
[2016-06-06] MEDS: ENSURE PUDDING CHOCOLATE 5 OZ PO SCH (08:31)
[2016-06-06] MEDS: Aspirin (Orange Enteric Coated) 325 mg tab PO SCH (08:32)
[2016-06-06] MEDS: QUETIAPINE FUMARATE 25 MG TAB PO SCH (08:32)
[2016-06-06 10:32] VITALS: PULSE 83
--- NOTE | 2016-06-06 10:48 | PCM.DCS92 ---
- Final/Secondary Discharge Diagnosis (1) CVA (cerebral vascular accident) Acute I63.9 - CEREBRAL INFARCTION, UNSPECIFIED Present on Admission: Yes unspecified I63.9 - Cerebral infarction, unspecified Comment: Cerebellar stroke confirmed on MRI. With old strokes and frontal ischemic changes as well. Started aspirin. Continue Pravachol. Carotid Doppler showed mild atherosclerosis and 2D echo showed diastolic dysfunction with an EF of 55-60%. Physical therapy has recommended outpatient PT and outpatient speech therapy. (2) Altered mental status Acute R41.82 - ALTERED MENTAL STATUS, UNSPECIFIED Present on Admission: Yes unspecified R41.82 - Altered mental status, unspecified Comment: Likely related to stroke. Has some frontal ischemic appearing changes as well. Was started on Seroquel and has done very well on this medication. Continue Seroquel at low-dose. (3) Hypertension Acute I10 - ESSENTIAL (PRIMARY) HYPERTENSION Present on Admission: Yes essential hypertension I10 - Essential (primary) hypertension Comment: Continue to monitor and titrate medications as outpatient. (4) Hyperlipidemia Acute E78.5 - HYPERLIPIDEMIA, UNSPECIFIED Present on Admission: Yes pure hypercholesterolemia E78.00 - Pure hypercholesterolemia, unspecified; E78.0 - Pure hypercholesterolemia Comment: Continue Pravachol for now. (5) Depression Acute F32.9 - MAJOR DEPRESSIVE DISORDER, SINGLE EPISODE, UNSPECIFIED Present on Admission: Yes unspecified F32.9 - Major depressive disorder, single episode, unspecified Comment: Continue home medications Discharge Disposition: Discharge w/ Home Health Discharge Condition: Improved Cognitive Discharge Status: Unimpaired Fuctional Discharge Status: Independent Physician Follow up/Referrals: Dylon Arriola MD [Primary Care Provider] - One Week New Prescriptions: Aspirin (OrangeEnteric Coated) [Ecotrin] 325 mg PO DAILYWM #30 tablet Quetiapine Fumarate [Seroquel] 12.5 mg PO DAILY #30 tablet Discharge Home Medication List CYANOCOBALAMIN (Vitamin B-12) [Vitamin B-12 (cyanocobalamin)] 1,000 mcg IM .MONTHLY 09/25/13 [History Confirmed 06/03/16 Last Taken 08/28/14] Omeprazole 20 mg PO DAILY 09/25/13 [History Confirmed 06/03/16 Last Taken ] Escitalopram Oxalate [Lexapro] 20 mg PO DAILY 09/26/13 [History Confirmed Last Taken 06/02/16] Pravastatin [Pravachol] 20 mg PO DAILY 09/26/13 [History Confirmed 06/03/16 Last Taken 06/02/16] Tizanidine HCl [Zanaflex] 4 mg PO .Q8-12H PRN 06/03/16 [History Confirmed Last Taken Unknown] Aspirin (OrangeEnteric Coated) [Ecotrin] 325 mg PO DAILYWM #30 tablet 06/06/16 [ Rx Last Taken Unknown] Quetiapine Fumarate [Seroquel] 12.5 mg PO DAILY #30 tablet 06/06/16 [Rx Last Taken Unknown] O2 Device: Room Air Diet at Discharge: Heart Healthy Activity: No Restrictions Call Office For: Worsening Symptoms - DC Summary Notes Hospital Course Note:: Discharge summary on patient named JELANI PATE admitted to [facility] on 06/03/16 by Kalia Dugan MD. Date of discharge is []. Mr. Pate is a 71-year-old white male with history of TIAs who presented emergency room with confusion, weakness and ambulatory dysfunction. An MRI done at that time confirmed a cerebellar stroke and some frontal ischemic changes. He was admitted to the hospital for further evaluation and management of stroke. He did not take an aspirin on a regular basis so we went ahead and started aspirin daily. We continued him on Pravachol. Carotid Dopplers were done which showed no significant stenosis. A 2D echo showed normal EF with diastolic dysfunction. He has been working with speech therapy and physical therapy and has stabilized. Recommend outpatient PT and speech therapy to follow. On the day of discharge she feels well and requests discharge home. I discussed his case with his at length and she agrees that he is doing better. At this point he has reached maximal hospital benefit and is stable for discharge. Total Time: 45 minutes - Physical Exam Vital Signs: Last Vital Signs Temp 97.4 F L 06/06/16 08:00 Pulse 83 06/06/16 10:31 Resp 18 06/06/16 08:00 BP 137/80 06/06/16 08:00 Pulse Ox 98 06/06/16 08:00 Oxygen Pulse Oxygen Saturation 98 O2 Device Room Air Oxygen Flow Rate Fraction of Inspired Oxygen ( FIO2) Constitutional: No apparent distress, Alert (Awake), Well nourished, Well appearing Oriented to: Time, Person, Place - HEENT Head: Normal Eye: Other (Artificial right eye) Oropharynx: Normal Tympanic Membrane: Normal ENT EAC: Normal Nose: No Symptoms Reported - Respiratory/Cardiovascular Respiratory: Normal - CTA Cardiovascular: Normal - GI Auscultation: Normal Palpation: Normal Tenderness: Non tender - Musculoskeletal Back: Normal. negative: Abrasion Extremities: Normal. negative: Calf Tenderness - Integumentary Skin: Warm, Dry Lymphatics: Normal - Neurologic Memory Impaired: Normal Motor Function: Normal Cerebellar: Normal. negative: Tremor Mood Description: Normal Thought: Coherent Perception: Normal
== END 2016-06-06 11:57 | disposition home or self-care (01) | DRG 65 ==
LOC: ED 13:44 → PCU 18:39
PROVIDERS: ADMIT Hospitalist; ATTEND Hospitalist
DX: I63.9 Cerebral infarction, unspecified (principal); I50.32 Chronic diastolic (congestive) heart failure; R53.1 Weakness; R41.82 Altered mental status, unspecified; I10 Essential (primary) hypertension; E78.5 Hyperlipidemia, unspecified; F32.9 Major depressive disorder, single episode, unspecified; E78.00 Pure hypercholesterolemia, unspecified; M19.90 Unspecified osteoarthritis, unspecified site; Z86.73 Personal history of transient ischemic attack (TIA), and cerebral infarction without residual deficits; Z79.899 Other long term (current) drug therapy; Z87.891 Personal history of nicotine dependence; R45.1 Restlessness and agitation; R13.12 Dysphagia, oropharyngeal phase; Z23 Encounter for immunization
CPT/HCPCS: 36415; 70450; 70553; 71010; 80053; 81001; 84484; 85025; 85610; 85730; 90471; 90656; 90732; 93005; 93306; 93880; 96372; 97161; 97165; 99285; A9577; J1650; J3490